=== PATIENT | female | born 1955 | race Caucasian/White ===

== ENCOUNTER → 2020-04-10 | Outpatient (CLI) | payer BC ==
[~2020-04-10] MED LIST: DOXY25TA18 PO
[2020-04-10 11:40] LABS: BASOPHILS % (AUTO) 1 % (0-1); EOSINOPHILS % (AUTO) 3 % (1-7); LYMPHOCYTES % (AUTO) 17 % (22-44); MEAN CORPUSCULAR HEMOGLOBIN 27.4 pg (27.0-34.8); MEAN CORPUSCULAR HGB CONC 32.8 g/dL (32.4-35.8); MEAN PLATELET VOLUME 6.5 fL (7.4-10.4); MONOCYTES % (AUTO) 10 % (2-9); NEUTROPHILS % (AUTO) 70 % (42-75); PLATELET COUNT 154 x10^3/uL (130-400); RED BLOOD COUNT 4.37 x10^6/uL (3.82-5.3); RED CELL DISTRIBUTION WIDTH 15.8 % (9.6-15.2)
[2020-04-10 11:44] LABS: ANION GAP 5 mmol/L (5-15); CHLORIDE 109 mmol/L (98-107); CREATININE 0.95 mg/dL (0.55-1.02)
[2020-04-10 11:46] LABS: MD NO
[2020-04-10 11:54] LABS: FREE T4 (FREE THYROXINE) 1.04 ng/dL (0.76-1.46)
== END | disposition home or self-care (01) ==
LOC: STAR 10:22
PROVIDERS: ATTEND Anesthesiology
DX: Z01.812 Encounter for preprocedural laboratory examination (principal); Z20.828 Contact with and (suspected) exposure to other viral communicable diseases; R19.7 Diarrhea, unspecified; R94.31 Abnormal electrocardiogram [ECG] [EKG]
CPT/HCPCS: 36415; 80048; 83516; 84439; 84443; 85025; 87635; 93005

== ENCOUNTER 2020-04-15 05:38 | Day surgery (SDC) | payer BC ==
[~2020-04-15] VITALS: Ht 157.5 cm; Wt 62.0 kg
[2020-04-15] MEDS ORDERED: CHLORHEXIDINE 15 ML UDC MM STA (06:31)
[2020-04-15] MEDS ORDERED: CHLORHEXIDINE 15 ML UDC ONE (06:34)
[2020-04-15] MEDS ORDERED: PROPOFOL 50 ML ONE (06:59)
[2020-04-15] MEDS ORDERED: MIDAZOLAM 1 MG/ML, 2ML ONE (06:59)
[2020-04-15] MEDS ORDERED: LACTATED RINGERS 1,000 ML IV SCH (07:00)
== END 2020-04-15 07:30 | disposition home or self-care (01) ==
LOC: OUT 05:38
PROVIDERS: ATTEND Internal Medicine Gastroenterology
DX: Z02.9 Encounter for administrative examinations, unspecified (principal)
CPT/HCPCS: J2250; J2704; J7120